=== PATIENT | female | born 1935 | race Asian ===

== ENCOUNTER 2016-07-11 19:52 | Emergency (ER) | payer MEDICARE, OTHER ==
[~2016-07-11] VITALS: Ht 142.2 cm; Wt 45.4 kg
--- NOTE | 2016-07-11 20:00 | NUR ---
PT KARLA JULES. TAKEN TO OF
[2016-07-11 20:16] VITALS: BP 190/82
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
--- NOTE | 2016-07-11 21:04 | NUR ---
Dr. Khan evaluating patient
[2016-07-11] MEDS ORDERED: NACL 0.9% 500 ML IV ONE (21:10)
[2016-07-11 21:42] LABS: BASOPHILS # (AUTO) 0.1 K/uL (0.00-0.22); BASOPHILS % (AUTO) 1.4 % (0.0-2.0); EOSINOPHILS # (AUTO) 0.2 K/uL (0-0.4); EOSINOPHILS % (AUTO) 2.1 % (0.0-4.0); HEMATOCRIT 42.2 % (36-48); HEMOGLOBIN 13.8 g/dL (12.0-16.0); LYMPHOCYTES # (AUTO) 1.8 K/uL (2.5-16.5); LYMPHOCYTES % (AUTO) 16.8 % (20.5-51.1); MEAN CORPUSCULAR HEMOGLOBIN 30 pg (27-31); MEAN CORPUSCULAR HGB CONC 33 g/dL (33-37); MEAN CORPUSCULAR VOLUME 92 fL (80-94); MONOCYTES # (AUTO) 0.7 K/uL (0.8-1.0); MONOCYTES % (AUTO) 6.4 % (1.7-9.3); NEUTROPHILS # (AUTO) 7.8 K/uL (1.8-7.7); NEUTROPHILS % (AUTO) 73.3 % (42.2-75.2); PLATELET COUNT (AUTO) 202 K/uL (140-450); RED BLOOD CELL COUNT(AUTO) 4.57 MIL/uL (4.20-5.40); RED CELL DISTRIBUTION WIDTH 12.1 % (11.6-13.7); WHITE BLOOD COUNT (AUTO) 10.6 K/uL (4.8-10.8)
--- NOTE | 2016-07-11 21:44 | NUR ---
PT MOVED TO ER BED 3
[2016-07-11 21:47] LABS: ANION GAP 12.3 (8-16); CALCIUM 9.2 mg/dL (8.5-10.1); CARBON DIOXIDE 32.1 mmol/L (21-32); CHLORIDE 99 mmol/L (98-107); CREATININE 0.9 mg/dL (0.6-1.3); GLUCOSE 170 mg/dL (74-106); POTASSIUM 3.4 mmol/L (3.5-5.1); SODIUM SERUM 140 mmol/L (136-145); UREA NITROGEN, BLOOD 21 mg/dL (7-18)
[2016-07-11 21:53] LABS: ALANINE AMINOTRANSFERASE 28 U/L (12-78); ALBUMIN 4.2 g/dL (3.4-5.0); ALKALINE PHOSPHATASE 73 U/L (46-116); ASPARTATE AMINOTRANSFERASE 25 U/L (15-37); TOTAL BILIRUBIN 0.5 mg/dL (0.0-1.0); TOTAL PROTEIN, SERUM 8.9 g/dL (6.4-8.2)
--- NOTE | 2016-07-11 22:23 | NUR ---
PT TO CT AT THIS TIME
--- NOTE | 2016-07-11 22:35 | NUR ---
PT RETURN FROM CT
[2016-07-11 22:38] LABS: APPEARANCE,URINE CLEAR (CLEAR); BILIRUBIN,URINE NEGATIVE (NEGATIVE); BLOOD, URINE TRACE-I (NEGATIVE); COLOR,URINE YELLOW (YELLOW); LEUKOCYTE ESTERASE ,URINE NEGATIVE (NEGATIVE); NITRITE, URINE NEGATIVE (NEGATIVE); PROTEIN,URINE NEGATIVE (NEGATIVE); UGLUCOSE 2+ (NEGATIVE); UROBILINOGEN,URINE 0.2 EU/dL (0.2 - 1)
[2016-07-11 22:51] LABS: BACTERIA,URINE None Seen /HPF (None Seen); RBC,URINE 0-5 (RARE) /HPF (0-5); SQUAMOUS EPITHELIAL CELL,UR 0-3 (FEW) /LPF (0-3 (FEW)); WBC,URINE NONE SEEN /HPF (0-5)
[2016-07-11 23:31] VITALS: BP 169/85
--- NOTE | 2016-07-11 23:31 | NUR ---
IV removed, catheter intact and site benign. Applied folded 4x4 gauze and tape to stop bleeding. Patient discharged with v/s stable. Written and verbal after care instructions given and explained. Patient alert, oriented and verbalized understanding of instructions. Ambulatory with steady gait. All questions addressed prior to discharge. ID band removed. Patient advised to follow up with PMD. Rx of MOTRIN AND NORCO given. Patient educated on indication of medication including possible reaction and side effects. Opportunity to ask questions provided and answered.
== END 2016-07-11 23:31 | disposition home or self-care (01) ==
LOC: MED 19:52
DX: S22.42XA Multiple fractures of ribs, left side, initial encounter for closed fracture (principal); E11.9 Type 2 diabetes mellitus without complications; I10 Essential (primary) hypertension; V43.52XA Car driver injured in collision with other type car in traffic accident, initial encounter; Y93.89 Activity, other specified; Y92.488 Other paved roadways as the place of occurrence of the external cause; Y99.8 Other external cause status
CPT/HCPCS: 36415; 71260; 74177; 80053; 81001; 85025; 96360; 96361; 99285; J7030; Q9967; 96372

== ENCOUNTER 2018-09-14 16:43 | Inpatient (IN) | payer OTHER ==
[~2018-09-14] VITALS: Ht 152.4 cm; Wt 59.4 kg
--- NOTE | 2018-09-14 16:43 | NUR ---
Patient KARLA JULES, triaged by RN and transferred to the ED lobby to wait for an available bed.
[2018-09-14 16:50] VITALS: BP 153/60
[2018-09-14] MEDS ORDERED: NIFE90TE3 PO (16:56)
[2018-09-14] MEDS ORDERED: METF1000 PO (16:56)
[2018-09-14] MEDS ORDERED: RIVA3CAP5 PO (16:56)
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
--- NOTE | 2018-09-14 17:03 | NUR ---
Patient ambulated to bed 6 with family. RN evaluating patient at bedside.
[2018-09-14] MEDS ORDERED: cefTRIAXone 1,000 MG in DEXT 5% MINI-BAG PLUS 50 ML IV ONE (17:05)
[2018-09-14] MEDS ORDERED: GLIP5TAB4 PO (17:12)
[2018-09-14] MEDS ORDERED: ESOM40EC PO (17:12)
[2018-09-14] MEDS ORDERED: CALC500T19 PO (17:12)
[2018-09-14] MEDS ORDERED: BACL10TA4 PO (17:12)
[2018-09-14] MEDS ORDERED: ATOR20TA PO (17:12)
[2018-09-14] MEDS ORDERED: ORE25 PO (17:12)
[2018-09-14] MEDS ORDERED: LEVO5TAB32 PO (17:12)
[2018-09-14] MEDS ORDERED: MULT1SGL58 PO (17:12)
[2018-09-14] MEDS ORDERED: cefTRIAXone 1,000 MG VIAL ONE (17:29)
[2018-09-14 17:32] LABS: BASOPHILS % (AUTO) 0.3 % (0.0-2.0); EOSINOPHILS % (AUTO) 0.1 % (0.0-4.0); HEMATOCRIT 35.7 % (36-48); HEMOGLOBIN 12.1 g/dL (12.0-16.0); LYMPHOCYTES # (AUTO) 2.2 K/uL (2.5-16.5); LYMPHOCYTES % (AUTO) 19.1 % (20.5-51.1); MEAN CORPUSCULAR HEMOGLOBIN 31 pg (27-31); MEAN CORPUSCULAR HGB CONC 34 g/dL (33-37); MEAN CORPUSCULAR VOLUME 90.6 fL (80-94); MONOCYTES # (AUTO) 1.1 K/uL (0.8-1.0); MONOCYTES % (AUTO) 9.1 % (1.7-9.3); NEUTROPHILS # (AUTO) 8.3 K/uL (1.8-7.7); NEUTROPHILS % (AUTO) 71.4 % (42.2-75.2); PLATELET COUNT (AUTO) 206 K/uL (140-450); RED BLOOD CELL COUNT(AUTO) 3.94 MIL/uL (4.20-5.40); RED CELL DISTRIBUTION WIDTH 13.2 % (11.6-13.7); WHITE BLOOD COUNT (AUTO) 11.6 K/uL (4.8-10.8)
--- NOTE | 2018-09-14 17:44 | NUR ---
PT TAKEN TO CT VIA BED BY DENTAL BILLING SPECIALIST
[2018-09-14 17:48] LABS: ALBUMIN 3.4 g/dL (3.4-5.0); ASPARTATE AMINOTRANSFERASE 21 U/L (15-37); CARBON DIOXIDE 27.8 mmol/L (21-32); CHLORIDE 88 mmol/L (98-107); CREATININE 1.2 mg/dL (0.6-1.3); GLUCOSE 207 mg/dL (74-106); SODIUM SERUM 130 mmol/L (136-145); TOTAL BILIRUBIN 0.8 mg/dL (0.0-1.0); UREA NITROGEN, BLOOD 15 mg/dL (7-18)
[2018-09-14 17:50] LABS: POTASSIUM 2.8 mmol/L (3.5-5.1)
--- NOTE | 2018-09-14 17:52 | NUR ---
RECEIVED REPORT FROM LAB, SPOKE TO ODALYSLACTIC ACID 4.6, DR CLEANING NOTIFIED.
--- NOTE | 2018-09-14 17:55 | NUR ---
Patient returned from CT scan. RN re-evaluating patient at bedside.
[2018-09-14] MEDS ORDERED: NACL 0.9% 1,500 ML IV ONE (18:25)
[2018-09-14 18:40] LABS: APPEARANCE,URINE CLEAR (CLEAR); BILIRUBIN,URINE NEGATIVE (NEGATIVE); BLOOD, URINE 2+ (NEGATIVE); COLOR,URINE YELLOW (YELLOW); LEUKOCYTE ESTERASE ,URINE NEGATIVE (NEGATIVE); NITRITE, URINE NEGATIVE (NEGATIVE); UGLUCOSE 1+ (NEGATIVE)
[2018-09-14 18:48] LABS: RBC,URINE >20 (MANY) /HPF (0-5); WBC,URINE 0-5 /HPF (0-5)
--- NOTE | 2018-09-14 19:04 | NUR ---
FLU SWAB OBTAINED. CALLED LAB FOR TUBE ROLLER.
[2018-09-14] MEDS ORDERED: POTASSIUM CHLORIDE 10 MEQ TABER PO ONE (19:10)
--- NOTE | 2018-09-14 19:12 | NUR ---
Pt report given to MARK Guerrero. Transfer of care at this time.
--- NOTE | 2018-09-14 19:15 | NUR ---
REPORT RECEIVED FROM MARK BENSON. TRANSFER OF CARE AT THIS TIME. PT IS AWAKE, ALERT RESTING COMFORTABLY IN BED. DAUGHTER AT BEDSIDE. SKIN PINK, WARM, DRY. BREATHING EVEN, UNLABORED. VSS.
--- NOTE | 2018-09-14 19:32 | NUR ---
DR. HERNANDEZ BEDSIDE EVALUATING PT
[2018-09-14] MEDS ORDERED: MORPHINE SULFATE 4 MG/ML SYR IVP ONE (19:45)
[2018-09-14] MEDS ORDERED: NACL 0.9% 500 ML IV ONE (19:45)
--- NOTE | 2018-09-14 20:03 | NUR ---
PT TAKEN TO CT
--- NOTE | 2018-09-14 20:21 | NUR ---
PT RETURNED FROM CT
--- NOTE | 2018-09-14 21:00 | NUR ---
SON AT BEDSIDE. SPOKE WITH GRANDDAUGHTER, RUSTY ON PHONE TO UPDATE ON PT'S STATUS.
[2018-09-14] MEDS ORDERED: HYDROcodone/APAP 7.5/325 MG 1 TAB PO PRN (21:05)
[2018-09-14] MEDS ORDERED: ONDANSETRON 4 MG/2 ML VIAL IVP PRN (21:05)
[2018-09-14] MEDS ORDERED: ACETAMINOPHEN 325 MG TAB PO PRN (21:05)
[2018-09-14] MEDS ORDERED: MEDICATION REC. PHARMACY CONS. 1 EA MISC MC PRN (21:05)
--- NOTE | 2018-09-14 21:23 | NUR ---
PT AMBULATED TO BR W/ FAMILY AT SIDE.
--- NOTE | 2018-09-14 21:30 | NUR ---
SP02: 90% ON 4 LPM FIO2 VIA NC. FIO2 INCREASED TO 6 LPM VIA SIMPLE MASK. SPO2:100%
[2018-09-14 21:32] LABS: PROTHROMBIN TIME 10.1 secs (10.8-13.4)
[2018-09-14 21:35] LABS: BARBITURATE, URINE NEG. ng/ml (NEG <=200); BENZODIAZEPINE, URINE NEG. ng/mL (NEG <=200); CANNABINOID, URINE NEG. ng/mL (NEG <=50); COCAINE, URINE NEG. ng/mL (NEG <=300); OPIATE, URINE NEG. ng/mL (NEG <=2000); PHENCYCLIDINE SCREEN,URINE NEG. ng/mL (NEG <=25)
[2018-09-14 21:44] LABS: FREE T4 (FREE THYROXINE) 1.47 ng/dL (0.76-1.46); MAGNESIUM 1.2 mg/dL (1.8-2.4); PHOSPHORUS 2.7 mg/dL (2.5-4.9); THYROID STIMULATING HORMONE 1.1 uIU/mL (0.34-3.74)
--- NOTE | 2018-09-14 21:47 | NUR ---
Patient will be admitted to care of Dr. Dallas. Admited to Tele. Will go to room 122A. Belongings list completed. Report to MARK Pelaez.
[2018-09-14 22:10] VITALS: BP 156/74
[2018-09-14] MEDS ORDERED: DEXTROSE 50% 50 ML SYR IVP PRN (22:10)
--- NOTE | 2018-09-14 22:10 | NUR ---
RECEIVED PT FROM ER NURSE. PT ABLE TO AMBULATE. PT SON AT BED SIDE. PT ON SIMPLE FACE MASK WITH 5LPM. NO SOB OR ANY RESP DISTRESS NOTED AT THIS TIME. SKIN INTACT, WARM AND DRY. DX PNA, HX DM, HTN. IV SITE LAC 22G, INTACT, PATENT AND ASYMPTOMATIC. ALL SAFETY MEASURE ARE MET. BED IN LOW POSITION, CALL LIGHT WITHIN REACH.
[2018-09-14] MEDS ORDERED: MAG SULF 2000 MG/WATER PREMIX 100 ML IV SCH (22:30)
[2018-09-14] MEDS ORDERED: POTASSIUM CHLORIDE 10 MEQ TABER PO SCH (22:30)
--- NOTE | 2018-09-14 22:57 | NUR ---
GIVEN MAG SULF AND Renetta HORTON. PT TOLERATED WELL. Addendum: 09/15/18 at 0633 by Héctor Hughes RN START NEW IV LINE ON RIGHT FA WITH 22G TO GIVE FLUID AND MAG AT SAME TIME. GOOD BLOOD RETURN NOTED. PT TOLERATED WELL.
[2018-09-14] MEDS ORDERED: SENNA 8.6 MG TAB PO SCH (23:00)
[2018-09-14] MEDS: NACL 0.9% 1,000 ML IV SCH (23:00)
--- NOTE | 2018-09-14 23:33 | NUR ---
GIVEN SENNA DR. ORDERED. PT TOLERATED WELL.
[2018-09-15] VITALS: BP 128/56
[2018-09-15] MEDS: AZITHROMYCIN 500 MG in DEXTROSE 5% 250 ML IV SCH ×2 (00:32→23:58)
--- NOTE | 2018-09-15 00:32 | NUR ---
GIVEN ZITHROMAX DR. ORDERED. PT TOLERATED WELL. BED IN LOW POSITION. CALL LIGHT WITHIN REACH.
[2018-09-15] MEDS ORDERED: AZITHROMYCIN 500 MG INJ VIAL IV ONE (00:37)
--- NOTE | 2018-09-15 03:30 | NUR ---
PT SLEEPING IN BED COMFORTABLY. NO SOB NOTED. BREATHING EVEN AND UNLABORED. WILL CONTINUE TO MONITOR.
[2018-09-15 04:00] VITALS: BP 129/65
[2018-09-15] MEDS: BLOOD GLUCOSE MONITORING 1 DEV DEV FS SCH ×4 (05:45→20:41)
[2018-09-15] MEDS: INSULIN LISPRO SLIDING SCALE 100 UNITS/ML VIAL SUBQ PRN ×4 (05:48→20:48)
--- NOTE | 2018-09-15 05:48 | NUR ---
BS CHECKED, 153, GIVEN 2 UNITS OF INSULIN ORDERED. PT TOLERATED WELL.
--- NOTE | 2018-09-15 07:35 | NUR ---
RECEIVED PT FROM GUIDE TRAVEL NURSE, PT IS AWAKE AND ULTRASOUND OF THE ABDOMEN IS BEING DONE TO PT NOW, HAS IV LINES ON THE LEFT AC G.22 ON SALINE LOCK AND RT FA G. 22 WITH NS INFUSING AT A RATE OF 80ML.HR, INTACT. PT HAS AN O2 IN PLACE AT 3L VIA NC. NO SIGN OF DISTRESS NOTED AN WILL MONITOR PT.
[2018-09-15 08:00] VITALS: BP 118/49
--- NOTE | 2018-09-15 08:05 | NUR ---
PT IS AWAKE AND VITAL SIGNS CHECKED, BP IS 118/49, PULSE IS 89, TEMP. IS 98.2, O2 SATURATION IS 92% AT 3L O2 NC. AND RESPIRATION IS 20/MIN, EVEN AND NO SIGN OF DISTRESS NOTED AND WILL MONITOR PT.
[2018-09-15] MEDS: glipiZIDE 5 MG TAB PO SCH ×2 (08:45→20:44)
[2018-09-15] MEDS: ATORVASTATIN 20 MG TAB PO SCH (08:45)
[2018-09-15] MEDS: CALCIUM CARBONATE 500 MG TAB PO SCH (08:45)
[2018-09-15] MEDS: MULTIVITAMIN/MINERALS 1 TAB PO SCH (08:46)
[2018-09-15] MEDS: BACLOFEN 10 MG TAB PO SCH (08:46)
[2018-09-15] MEDS: DOCUSATE SODIUM 100 MG GELCAP PO SCH ×2 (08:46→20:44)
[2018-09-15] MEDS: LACTOBACILLUS RHAMNOSUS GG 1 EACH CAP PO SCH (08:46)
[2018-09-15] MEDS: PANTOPRAZOLE 40 MG TABEC PO SCH (08:46)
[2018-09-15] MEDS: RIVASTIGMINE 1.5 MG CAP PO SCH (08:47)
[2018-09-15] MEDS: NIFEdipine 90 MG TABER PO SCH ×2 (09:08→20:44)
--- NOTE | 2018-09-15 09:30 | NUR ---
PLACED PT ON 9 L OXYMIZER SPO2 92
--- NOTE | 2018-09-15 09:30 | NUR ---
PATIENT HAS BEEN SCREENED AND CATEGORIZED HIGH NUTRITION RISK. PATIENT WILL BE SEEN WITHIN 1-2 DAYS OF ADMISSION. 09/15/18-09/16/[address]
--- NOTE | 2018-09-15 11:20 | NUR ---
PT'S O2 SATURATION WAS CHECKED NOW AND IS 94%. ON 3L OXYMIZER AND WILL CONTINUE TO MONITOR PT.
[2018-09-15] MEDS: ALBUTEROL SULFATE/IPRATROPIU 3 ML SOL IH PRN ×2 (11:21→17:48)
--- NOTE | 2018-09-15 11:55 | NUR ---
PT WAS GIVEN 4 UNITS INSULIN FOR A BLOOD SUGAR OF 108 ON THE ABDOMEN. WILL MONITOR PT.
[2018-09-15] MEDS: NACL 0.9% 1,000 ML IV SCH ×3 (11:57→23:58)
[2018-09-15 12:00] VITALS: BP 158/71
[2018-09-15] MEDS: ALBUTEROL SULFATE/IPRATROPIU 3 ML SOL IH SCH ×2 (13:27→19:40)
[2018-09-15] MEDS ORDERED: FUROSEMIDE 20 MG/2 ML VIAL IVP SCH (14:00)
--- NOTE | 2018-09-15 14:13 | NUR ---
LASIX IV PUSH WAS GIVEN TO PT NOW, BP IS 152/67, PULSE IS 113, 02 SATURATION 97%. NO SIGN OF DISTRESS NOTED AND WILL MONITOR PT.
[2018-09-15 16:00] VITALS: BP 154/70
--- NOTE | 2018-09-15 16:42 | NUR ---
PT WAS GIVEN 4 UNITS INSULIN ON THE ABDOMEN FOR A BLOOD GLUCOSE OF 231. WILL MONITOR PT.
--- NOTE | 2018-09-15 17:30 | NUR ---
09/15/18 RD INITIAL ASSESSMENT COMPLETED PLEASE REFER TO NUTRITION ASSESSMENT UNDER CARE ACTIVITY FOR ESTIMATED NUTRITIONAL NEEDS. RD RECOMMENDATIONS: 1. CONTINUE 60 GM CCHO DIET TOLERATED. 2. ENCOURAGE INCREASED PO INTAKE. 3. IF PT HAS POOR PO INTAKE, CONSIDER GLUCERNA SHAKE BID. 4. RD WILL F/U 3-5 DAYS; MODERATE RISK. EFRAÍN CHAVIRA, RD
--- NOTE | 2018-09-15 19:00 | NUR ---
ENDORSED PT TO CLEAN OUT DRILLER NURSE FOR CONTINUITY OF CARE.
--- NOTE | 2018-09-15 19:00 | NUR ---
RECEIVED REPORT FROM AM SHIFT NURSE FOR CONTINUITY OF CARE. PATIENT IS AWAKE, ALERT, LYING DOWN IN BED WITH SON AT BEDSIDE. PATIENT IS ON 3L OXIMIZER. HAS RIGHT FOREARM 22 GA NORMAL SALINE RUNNING AT 80 ML/HR. PATIENT DENIES ANY PAIN AT THIS TIME. WILL MONITOR PATIENT THROUGHOUT SHIFT.
[2018-09-15 20:00] VITALS: BP 145/69
--- NOTE | 2018-09-15 20:15 | NUR ---
1954 INCENTIVE SPIROMETER INSTRUCTED TO PATIENT AND FAMILY MEMBERS INTERPRETED TO PATIENT. PATIENT HAD A POOR EFFORT AT 500CC X 10 BREATHS. FAMILY WILL HELP HER TO CONTINUE USING IT
--- NOTE | 2018-09-15 20:18 | NUR ---
DR. ORTEGA CAME AND CHECKED ON PT. DISCUSSED PRESENT CONDITION TO PT AND FAMILY.
--- NOTE | 2018-09-15 20:44 | NUR ---
BLOOD GLUCOSE CHECK - 252. ADMINISTERED 6 UNITS OF INSULIN. ALSO ADMINISTERED PO MEDICATIONS AND HEPARIN SUBQ ORDERED. PATIENT TOLERATED THEM WELL. WILL CONTINUE TO MONITOR PATIENT.
--- NOTE | 2018-09-15 20:48 | NUR ---
BLOOD SUGAR WAS CHECKED RESULT 252. INSULIN COVERAGE SUB Q GIVEN ORDERED. PROVIDED WITH HS SNACK. WILL CONTINUE TO MONITOR. Addendum: 09/15/18 at 2320 by Darcie De Jesus RN CANCEL. DUPLICATE NOTES.
--- NOTE | 2018-09-15 22:50 | NUR ---
PT USED THE COMMODE .VOIDED. WITH SOB AFTER. SO ASSISTED PT TO REPOSITIONED WELL WITH HOB ELEVATED. AND PROPER BREATHING TECHNIQUE. USED INCENTIVE SPIROMETER. O2 SAT 94%.
--- NOTE | 2018-09-15 23:30 | NUR ---
MADE ROUNDS. PATIENT LYING DOWN IN BED, ASLEEP, WITH NO SIGNS OF DISTRESS. WILL CONTINUE TO MONITOR PATIENT.
--- NOTE | 2018-09-15 23:58 | NUR ---
ASSISTED PATIENT TO BEDPAN. PATIENT DID NOT SHOW SIGNS OF SHORTNESS OF BREATH. VITAL SIGNS TAKEN AND CHARTED. HUNG IV ANTIBIOTICS. PATIENT DENIES ANY PAIN AT THIS TIME. WILL CONTINUE TO MONITOR PATIENT.
[2018-09-16] VITALS: BP 154/69
--- NOTE | 2018-09-16 02:00 | NUR ---
ASSISTED PATIENT TO BEDPAN, BOWEL MOVEMENT AND URINE NOTED. PATIENT EXHIBITING SIGNS OF SHORTNESS OF BREATH. ASSISTED WITH DEEP BREATHING TECHNIQUES, O2 SAT WENT UP TO 92%. WILL CONTINUE TO MONITOR PATIENT.
--- NOTE | 2018-09-16 03:10 | NUR ---
PATIENT EXHIBITING SHORTNESS OF BREATH, CALLED RT AND ASKED FOR BREATHING TREATMENT.
[2018-09-16] MEDS: ALBUTEROL SULFATE/IPRATROPIU 3 ML SOL IH PRN (03:18)
--- NOTE | 2018-09-16 03:20 | NUR ---
RT AT BEDSIDE, ADMINISTERING BREATHING TREATMENT. WILL CONTINUE TO MONITOR PATIENT.
[2018-09-16 03:52] VITALS: BP 132/58
--- NOTE | 2018-09-16 03:53 | NUR ---
PT AWAKE,ALERT AND ORIENTED X4. HAVING SOME WHEEZING AND O2 SAT ONLY 90% WITH 6L O2 OXIMIZER,RESPIRATION 22/MIN EVEN AFTER THE BREATHING TREATMENTS THAT WAS JUST GIVEN BY RT. TALKED TO DR HUTSON , RESIDENT ON DUTY AND MADE AWARE. ORDERED SOLU- MEDROL 125MG IVP WHICH WAS GIVEN. WILL CONTINUE TO MONITOR.
[2018-09-16] MEDS ORDERED: methylPREDNISolone SS 125 MG/2 ML VIAL IVP SCH (04:00)
--- NOTE | 2018-09-16 04:22 | NUR ---
MADE ROUNDS. PT ASLEEP. O2 SAT 92% AT THIS TIME. NO RESPIRATORY DISTRESS NOTED. WILL STILL CONTINUE TO MONITOR.
--- NOTE | 2018-09-16 05:33 | NUR ---
ADMINISTERED 2ML OF LASIX MEDICATION IV PUSH, ORDERED. DR. BRO ORDERED TO STOP THE IV INFUSION. STOPPED IV, NOW ON SALINE LOCK. PATIENT O2 SATURATION IS AT 91%. WILL CONTINUE TO MONITOR PATIENT.
[2018-09-16] MEDS: BLOOD GLUCOSE MONITORING 1 DEV DEV FS SCH ×4 (05:40→21:39)
[2018-09-16] MEDS: INSULIN LISPRO SLIDING SCALE 100 UNITS/ML VIAL SUBQ PRN ×3 (05:57→21:42)
[2018-09-16] MEDS ORDERED: FUROSEMIDE 20 MG/2 ML VIAL IVP SCH ×2 (06:00→09:00)
--- NOTE | 2018-09-16 06:13 | NUR ---
O2 SAT AT THIS TIME 95% WITH O2 12L/MIN OXIMIZER RT CHANGED FROM 7L/MIN. . WAITING FOR ABG RESULT.
--- NOTE | 2018-09-16 06:45 | NUR ---
CHEST XRAY DONE AT BEDSIDE. WILL ENDORSE TO AM SHIFT NURSE TO AWAIT FOR RESULT.
[2018-09-16] MEDS: ALBUTEROL SULFATE/IPRATROPIU 3 ML SOL IH SCH ×3 (06:56→19:20)
--- NOTE | 2018-09-16 07:04 | NUR ---
ENDORSED PATIENT TO AM SHIFT NURSE FOR CONTINUITY OF CARE. PATIENT IS ON 12L OXIMIZER NC, 96% O2 SATURATION. PATIENT IS IN STABLE CONDITION. BED IN LOW POSITION, SIDE RAILS ARE UP, AND CALL LIGHT WITHIN REACH.
--- NOTE | 2018-09-16 07:05 | NUR ---
RECEIVED PT FROM STATION TENDER NURSE, PT IS AWAKE AND LYING ON THE BED WITH SIDE RAILS UP AND CALL LIGHT WITHIN REACH, PT IS ON 10L O2 VIA OXYMIZER, HAS AN IV LINE ON THE RT FA G. 22 ON SALINE LOCK, RESPIRATION IS EVEN,DENIES PAIN, NO SIGN OF DISTRESS NOTED. WILL MONITOR PT.
[2018-09-16 07:12] LABS: BASOPHILS % (AUTO) 0.1 % (0.0-2.0); EOSINOPHILS % (AUTO) 0.1 % (0.0-4.0); HEMATOCRIT 32.5 % (36-48); HEMOGLOBIN 11.1 g/dL (12.0-16.0); LYMPHOCYTES # (AUTO) 0.7 K/uL (2.5-16.5); MEAN CORPUSCULAR HEMOGLOBIN 31 pg (27-31); MEAN CORPUSCULAR HGB CONC 34 g/dL (33-37); MEAN CORPUSCULAR VOLUME 91.1 fL (80-94); MONOCYTES # (AUTO) 0.3 K/uL (0.8-1.0); MONOCYTES % (AUTO) 2.7 % (1.7-9.3); NEUTROPHILS # (AUTO) 8.7 K/uL (1.8-7.7); PLATELET COUNT (AUTO) 191 K/uL (140-450); RED BLOOD CELL COUNT(AUTO) 3.57 MIL/uL (4.20-5.40); RED CELL DISTRIBUTION WIDTH 12.8 % (11.6-13.7); WHITE BLOOD COUNT (AUTO) 9.7 K/uL (4.8-10.8)
[2018-09-16 07:16] LABS: ANION GAP 13.3 (8-16); CARBON DIOXIDE 28.6 mmol/L (21-32); CHLORIDE 98 mmol/L (98-107); CREATININE 0.8 mg/dL (0.6-1.3); GLUCOSE 178 mg/dL (74-106); SODIUM SERUM 137 mmol/L (136-145); UREA NITROGEN, BLOOD 9 mg/dL (7-18)
[2018-09-16 07:24] LABS: CHOL/HDL RATIO 1.6 (1-4.5); MAGNESIUM 1.4 mg/dL (1.8-2.4)
[2018-09-16 07:39] LABS: POTASSIUM 2.9 mmol/L (3.5-5.1)
[2018-09-16 08:00] VITALS: BP 141/61
[2018-09-16 08:09] LABS: LYMPHOCYTES % (AUTO) 6.9 % (20.5-51.1); NEUTROPHILS % (AUTO) 90.2 % (42.2-75.2)
[2018-09-16] MEDS: ATORVASTATIN 20 MG TAB PO SCH (09:24)
[2018-09-16] MEDS: DOCUSATE SODIUM 100 MG GELCAP PO SCH ×2 (09:24→21:40)
[2018-09-16] MEDS: MULTIVITAMIN/MINERALS 1 TAB PO SCH (09:24)
[2018-09-16] MEDS: glipiZIDE 5 MG TAB PO SCH ×2 (09:24→21:40)
[2018-09-16] MEDS: LACTOBACILLUS RHAMNOSUS GG 1 EACH CAP PO SCH (09:25)
[2018-09-16] MEDS: CALCIUM CARBONATE 500 MG TAB PO SCH (09:25)
[2018-09-16] MEDS: PANTOPRAZOLE 40 MG TABEC PO SCH (09:25)
[2018-09-16] MEDS: BACLOFEN 10 MG TAB PO SCH (09:25)
[2018-09-16] MEDS: RIVASTIGMINE 1.5 MG CAP PO SCH (09:27)
[2018-09-16] MEDS: NIFEdipine 90 MG TABER PO SCH ×2 (09:30→21:40)
[2018-09-16] MEDS ORDERED: MAG SULF 2000 MG/WATER PREMIX 50 ML IV SCH (10:00)
[2018-09-16] MEDS ORDERED: POTASSIUM CHLORIDE 40 MEQ, LIDOCAINE MPF 1% - 5 mL VIAL 25 MG in NACL 0.9% 250 ML IV SCH (10:00)
--- NOTE | 2018-09-16 11:02 | NUR ---
INFORMED PT OF THE MG LEVEL OF 1.4 AND POTASSIUM LEVEL OF 2.9, VIA INSPECTOR SEMICONDUCTOR WAFER DEMI #[id number] AND INFORMED PT THAT MG AND K SUPPLEMENTS WILL BE GIVEN VIA IV AND PT VERBALIZED UNDERSTANDING.
--- NOTE | 2018-09-16 11:12 | NUR ---
MAGNESIUM SULFATE RIDER SUPPLEMENT VIA WAS GIVEN TO PT FOR THE MG LEVEL OF 1.4. WILL MONITOR PT.
--- NOTE | 2018-09-16 11:40 | NUR ---
BLOOD GLUCOSE CHECK DONE TO PT AND RESULT IS 417, INFORMED DR. CONWAY AND SAID THAT HE WILL PUT AN ORDER TO GIVE 4 UNITS INSULIN TO PT FOR A ONE TIME DOSE NOW. ACKNOWLEDGED AND WILL MONITOR PT.
--- NOTE | 2018-09-16 11:56 | NUR ---
PT IS AWAKE AND FAMILY ON THE BEDSIDE, 4 UNITS INSULIN HUMALOG WAS GIVEN SUB VIA ABDOMEN AND PT TOLERATED IT. WILL MONITOR PT.
[2018-09-16 12:00] VITALS: BP 126/60
[2018-09-16] MEDS ORDERED: INSULIN LISPRO 100 UNITS/ML VIAL SUBQ SCH (12:00)
--- NOTE | 2018-09-16 13:41 | NUR ---
POTASSIUM RIDER IV WAS STARTED TO PT NOW AT A RATE OF 68/MR. WILL MONITOR PT.
[2018-09-16 16:00] VITALS: BP 135/69
--- NOTE | 2018-09-16 16:32 | NUR ---
BLOOD GLUCOSE WAS CHECKED AND RESULT IS 334, VITAL SIGNS TAKEN AND BP IS 135/69, PULSE IS 104, O2 SATURATION IS 94%TEMPERATURE IS 98.7, RESPIRATION IS EVEN AT 18/MIN, NO SIGN OF DISTRESS NOTED, GRANDDAUGHTER ON THE BEDSIDE. WILL MONITOR PT.
--- NOTE | 2018-09-16 17:28 | NUR ---
PT WAS GIVEN INSULIN SUBQ IN THE ABDOMEN NOW.
--- NOTE | 2018-09-16 19:20 | NUR ---
RECEIVED PATIENT FROM AM SHIFT NURSE FOR CONTINUITY OF CARE. PATIENT IS LYING DOWN IN BED AWAKE, WITH FAMILY MEMBERS AT BEDSIDE. PATIENT DENIES ANY PAIN OR SHORTNESS OF BREATH AT THIS TIME. WILL MONITOR PATIENT THROUGHOUT SHIFT.
--- NOTE | 2018-09-16 19:20 | NUR ---
ENDORSED PT TO SEWING MACHINE MAINTENANCE MECHANIC NURSE FOR CONTINUITY OF CARE.
[2018-09-16 20:00] VITALS: BP 139/64
--- NOTE | 2018-09-16 21:40 | NUR ---
ADMINISTERED PO AND SUBQ MEDICATIONS ORDERED. PATIENT TOLERATED THEM WELL. PATIENT DENIES ANY DISCOMFORT AT THIS TIME. WILL CONTINUE TO MONITOR PATIENT.
--- NOTE | 2018-09-16 22:35 | NUR ---
USED MARKET DEVELOPMENT SPECIALIST PHONE - MARKET DEVELOPMENT SPECIALIST NUMBER - [phone]. PATIENT TRYING TO VOICE OUT INCREASE SHORTNESS OF BREATH UPON LIGHT ACTIVITY, SUCH USING BEDPAN. EXPLAINED THAT OXIMIZER NEEDS TO ALWAYS BE ON HER FOR IMPROVED BREATHING. PATIENT VERBALIZED UNDERSTANDING.
[2018-09-16] MEDS ORDERED: FUROSEMIDE 40 MG/4 ML VIAL IVP SCH (23:00)
--- NOTE | 2018-09-16 23:29 | NUR ---
ADMINISTERED LASIX 40 MG IV PUSH ORDERED. PATIENT TOLERATED IT WELL. WILL CONTINUE TO MONITOR PATIENT.
[2018-09-17] MEDS: ALBUTEROL SULFATE/IPRATROPIU 3 ML SOL IH PRN ×2 (00:20→23:05)
--- NOTE | 2018-09-17 00:20 | NUR ---
USED HOSPITAL PLATE AND FRAME FILTER OPERATOR PHONE - PLATE AND FRAME FILTER OPERATOR NUMBER [id number]. PATIENT HAS INCREASED SHORTNESS OF BREATH, AND ANXIETY. EXPLAINED TO PATIENT THE NEED AND BENEFIT FOR BIPAP USE, AND FOR INSERTING URINARY SMITH CATHETER. PATIENT VERBALIZED UNDERSTANDING.
--- NOTE | 2018-09-17 00:40 | NUR ---
PATIENT WAS PUT ON BIPAP, ORDERED, FOR PROLONGED SHORTNESS OF BREATH, AND WHEEZING. INSERTED SMITH CATHETER ORDERED. PATIENT TOLERATED IT WELL. WILL CONTINUE TO MONITOR PATIENT.
[2018-09-17 00:58] VITALS: BP 154/71
--- NOTE | 2018-09-17 00:58 | NUR ---
0020 PATIENT BECAME SHORT OF BREATH AND HHNTX GIVEN. PATIENT PLACED ON BIPAP IPAP 12 EPAP 6 RR 14 100% FIO2.
[2018-09-17] MEDS: AZITHROMYCIN 500 MG in DEXTROSE 5% 250 ML IV SCH (01:03)
[2018-09-17] MEDS ORDERED: methylPREDNISolone SS 125 MG/2 ML VIAL IVP SCH (01:30)
[2018-09-17] MEDS ORDERED: FUROSEMIDE 40 MG/4 ML VIAL IVP SCH (01:30)
[2018-09-17] MEDS ORDERED: FUROSEMIDE 40 MG/4 ML VIAL IVP ONE (01:30)
--- NOTE | 2018-09-17 02:10 | NUR ---
ADMINISTERED SOLU-MEDROL 80 MG IV PUSH ORDERED. PATIENT TOLERATED IT WELL. WILL CONTINUE TO MONITOR PATIENT.
--- NOTE | 2018-09-17 02:35 | NUR ---
PATIENT LYING DOWN IN BED, AWAKE. BREATHING AND CONDITION IS BETTER AND PATIENT APPEARS TO BE MORE COMFORTABLE. WILL CONTINUE TO MONITOR PATIENT.
[2018-09-17] MEDS ORDERED: LORazepam 2 MG/ML VIAL IVP ONE (03:05)
--- NOTE | 2018-09-17 03:10 | NUR ---
PATIENT INTERMITTENTLY ADJUSTS BIPAP MASK, APPEARS TO BE ANXIOUS. DR. BRO MADE AWARE WITH ORDER. ATIVAN 0.5 MG IV PUSH ADMINISTERED. WILL CONTINUE TO MONITOR PATIENT.
--- NOTE | 2018-09-17 03:18 | NUR ---
0300 lowered fio2 to 60%. pts sats 100%. pt is anxious. keeps touching her mask. rn aware
[2018-09-17 03:57] VITALS: BP 120/58
--- NOTE | 2018-09-17 04:06 | NUR ---
patient wanted off bipap. patient placed on 10 l oxymizer, will continue to monitor patient
--- NOTE | 2018-09-17 04:06 | NUR ---
FOUND BIPAP MACHINE MASK OFF OF PATIENT. TRIED TO REORIENT AND RE-INSTRUCT PATIENT TO NOT TAKEOFF MASK. PATIENT GREW MORE ANXIOUS. WEANED OFF BIPAP AND STARTED ON 10L OXIMIZER AGAIN.
--- NOTE | 2018-09-17 04:15 | NUR ---
PATIENT GROWING MORE ANXIOUS. TRYING TO PULL OUT CALL LIGHT CORD, OXYGEN PROBE CORD. ATTEMPTED TO REDIRECT AND REORIENT, WITH NO AVAIL. WILL TRY TO CALL SON TO REPORT CONDITION OF PATIENT.
--- NOTE | 2018-09-17 04:30 | NUR ---
CALLED AND LEFT A VOICEMAIL TO SONDRU, TO REPORT CURRENT ANXIOUS AND CONFUSED CONDITION OF PATIENT.
--- NOTE | 2018-09-17 05:00 | NUR ---
PATIENT PULLED OUT URINARY SMITH CATHETER. CONTINUOUS TO BE ANXIOUS AND MORE CONFUSED. PATIENT TRYING TO GET OUT OF BED, AND PULLING OUT OXIMIZER, AND O2 PROBE.
--- NOTE | 2018-09-17 05:05 | NUR ---
MD NOTIFIED AND AWARE OF CURRENT PATIENT'S CONDITION. NO NEW ORDERS. WILL CONTINUE TO MONITOR PATIENT.
[2018-09-17 05:42] LABS: CARBON DIOXIDE 29.8 mmol/L (21-32); CHLORIDE 96 mmol/L (98-107); CREATININE 1.1 mg/dL (0.6-1.3); GLUCOSE 234 mg/dL (74-106); SODIUM SERUM 137 mmol/L (136-145); UREA NITROGEN, BLOOD 15 mg/dL (7-18)
[2018-09-17 05:43] LABS: MAGNESIUM 1.6 mg/dL (1.8-2.4); PHOSPHORUS 3.2 mg/dL (2.5-4.9)
[2018-09-17] MEDS: BLOOD GLUCOSE MONITORING 1 DEV DEV FS SCH ×4 (06:09→20:19)
[2018-09-17] MEDS: INSULIN LISPRO SLIDING SCALE 100 UNITS/ML VIAL SUBQ PRN ×4 (06:11→20:18)
--- NOTE | 2018-09-17 06:11 | NUR ---
GLUCOSE CHECK 227, 4 UNITS ADMINISTERED USING SLIDING SCALE.
--- NOTE | 2018-09-17 06:16 | NUR ---
PT STARTED TO GET SOME SLEEP WHEN JUST TRANSFERRED TO ROOM 110A DUE TO CONFUSION ,TRYING TO GET OUT OF BED AND PULLING TUBINGS. O2 SAT AT THIS TIME 96% ON O2 10L BY OXYMIZER.
[2018-09-17 06:19] LABS: POTASSIUM 2.8 mmol/L (3.5-5.1)
--- NOTE | 2018-09-17 06:20 | NUR ---
LAB CALLED FOR CRITICal result k level 2.[address] BRO MADE AWARE . WILL SEE PT.
--- NOTE | 2018-09-17 06:40 | NUR ---
HUNG 1ST BAG OF MAGNESIUM SULFATE IV FLUID ORDERED. INITIATED FALL RISK PRECAUTION PROTOCOL, DUE TO INCREASED CONFUSION THROUGHOUT THE NIGHT. PATIENT IS CURRENTLY LYING DOWN ASLEEP, WITH NO SIGNS OF DISTRESS, ON 10L O2 VIA OXIMIZER SATURATING AT 98%. WILL CONTINUE TO MONITOR PATIENT.
[2018-09-17 06:49] LABS: HEMATOCRIT 30.1 % (36-48); HEMOGLOBIN 10.2 g/dL (12.0-16.0); LYMPHOCYTES # (AUTO) 0.6 K/uL (2.5-16.5); LYMPHOCYTES % (AUTO) 4.5 % (20.5-51.1); MEAN CORPUSCULAR HEMOGLOBIN 31 pg (27-31); MEAN CORPUSCULAR HGB CONC 34 g/dL (33-37); MEAN CORPUSCULAR VOLUME 90.7 fL (80-94); MONOCYTES # (AUTO) 0.3 K/uL (0.8-1.0); MONOCYTES % (AUTO) 2.6 % (1.7-9.3); NEUTROPHILS # (AUTO) 11.6 K/uL (1.8-7.7); NEUTROPHILS % (AUTO) 92.9 % (42.2-75.2); PLATELET COUNT (AUTO) 205 K/uL (140-450); RED BLOOD CELL COUNT(AUTO) 3.32 MIL/uL (4.20-5.40); RED CELL DISTRIBUTION WIDTH 13.2 % (11.6-13.7); WHITE BLOOD COUNT (AUTO) 12.5 K/uL (4.8-10.8)
[2018-09-17] MEDS: ALBUTEROL SULFATE/IPRATROPIU 3 ML SOL IH SCH ×3 (06:52→19:13)
[2018-09-17] MEDS ORDERED: MAG SULF 2000 MG/WATER PREMIX 100 ML IV ONE (07:00)
[2018-09-17] MEDS ORDERED: POTASSIUM CHLORIDE 10 MEQ TABER PO SCH (07:00)
--- NOTE | 2018-09-17 07:00 | NUR ---
ENDORSED PATIENT TO AM SHIFT NURSE FOR CONTINUITY OF CARE. PATIENT LYING DOWN, ASLEEP, WITH NO SIGNS OF DISTRESS, WITH CONTINUOUS O2 SAT OF 98% ON 10L OXIMIZER NC.
--- NOTE | 2018-09-17 07:05 | NUR ---
PLACED 7 L OXYMIZER SPO2 92 Addendum: 09/17/18 at 0707 by Latricia Shields RT POX IN PLACE , PT HAS O2 EXTENSION
--- NOTE | 2018-09-17 07:10 | NUR ---
RECEIVED BEDSIDE REPORT FROM WASHER CUTTER NURSE. PT IS ASLEEP WITH THE OXIMIZER AT 10L/MIN. NO S/S OF ANY ACUTE DISTRESS NOTED, NO S/S OF SOB. SKIN IS INTACT. IV IS IN THE RFA, 22 G, SALINE LOCKED. CCHO 60 DIET. PT IS SENEGALESE SPEAKING ONLY. THERE IS A COMMODE AT BEDSIDE, BUT WAS TOLD BY WASHER CUTTER NURSE TO ONLY USE BEDPAN BECAUSE PT GETS VERY SHORT OF BREATH WHEN GETTING UP ONTO THE COMMODE. CALL LIGHT IS WITHIN REACH, WILL CONTINUE TO MONITOR.
[2018-09-17 08:00] VITALS: BP 127/59
[2018-09-17] MEDS ORDERED: POTASSIUM CHLORIDE 40 MEQ, LIDOCAINE MPF 1% - 5 mL VIAL 25 MG in NACL 0.9% 250 ML IV ONE (08:00)
[2018-09-17] MEDS: LACTOBACILLUS RHAMNOSUS GG 1 EACH CAP PO SCH (08:25)
[2018-09-17] MEDS: MULTIVITAMIN/MINERALS 1 TAB PO SCH (08:26)
[2018-09-17] MEDS: NIFEdipine 90 MG TABER PO SCH ×2 (08:26→20:10)
[2018-09-17] MEDS: glipiZIDE 5 MG TAB PO SCH ×2 (08:26→20:10)
[2018-09-17] MEDS: ATORVASTATIN 20 MG TAB PO SCH (08:26)
[2018-09-17] MEDS: FUROSEMIDE 40 MG/4 ML VIAL IVP SCH ×2 (08:26→17:17)
[2018-09-17] MEDS: BACLOFEN 10 MG TAB PO SCH (08:26)
[2018-09-17] MEDS: DOCUSATE SODIUM 100 MG GELCAP PO SCH ×2 (08:26→20:09)
[2018-09-17] MEDS: POTASSIUM CHLORIDE 10 MEQ TABER PO SCH (08:27)
[2018-09-17] MEDS: CALCIUM CARBONATE 500 MG TAB PO SCH (08:27)
[2018-09-17] MEDS: PANTOPRAZOLE 40 MG TABEC PO SCH (08:27)
--- NOTE | 2018-09-17 08:56 | NUR ---
AM MEDS ADMINISTERED, PT TOLERATED WELL. PT'S DAUGHTER IS AT BEDSIDE. SECOND BAG OF IV MAG IS INFUSING AT THIS TIME.
[2018-09-17] MEDS ORDERED: DEXTROSE 50% 50 ML SYR IVP PRN (09:00)
[2018-09-17] MEDS ORDERED: FUROSEMIDE 20 MG TAB PO SCH (09:00)
--- NOTE | 2018-09-17 09:19 | NUR ---
CONSENT OBTAINED FROM PT'S DAUGHTER FOR THE CHEST CT SCAN WITH CONTRAST.
--- NOTE | 2018-09-17 10:34 | NUR ---
NEW IV INSERTED IN R FA, 20 G, FOR CONTRAST ADMINISTRATION, FOR THE CHEST CT SCAN. Addendum: 09/17/18 at 1036 by Christen Lam RN CORRECTION: LEFT FA
--- NOTE | 2018-09-17 11:00 | NUR ---
PT OFF THE UNIT FOR CHEST CT SCAN WITH CONTRAST.
--- NOTE | 2018-09-17 11:35 | NUR ---
PT IS BACK FROM CHEST CT SCAN; NO S/S OF REACTION TO IV CONTRAST REPORTED.
[2018-09-17 12:00] VITALS: BP 139/64
--- NOTE | 2018-09-17 12:14 | NUR ---
PT HAVING AN ECHOCARDIOGRAM AT THIS TIME AT BEDSIDE. DAUGHTER IS STILL PRESENT AT BEDSIDE.
--- NOTE | 2018-09-17 12:58 | NUR ---
DECREASE FIO2 FROM 10 OXYMIZER TO 6 L SPO2 100 FAMILY PRESENT
[2018-09-17] MEDS: methylPREDNISolone SS 125 MG/2 ML VIAL IVP SCH ×2 (13:47→20:08)
[2018-09-17] MEDS: PIPER/TAZO 3.375GM/D5W PREMIX 50 ML IV SCH ×2 (13:47→20:08)
--- NOTE | 2018-09-17 14:52 | NUR ---
PT OFF THE UNIT FOR HEAD CT SCAN.
[2018-09-17 16:00] VITALS: BP 145/67
--- NOTE | 2018-09-17 17:27 | NUR ---
DR CONWAY PERFORMED NEURO CHECKS ON PT, PT DOES NOT APPEAR TO HAVE S/S OF A STROKE, DESPITE THE HEAD CT SCAN FINDINGS. PT IS ABLE TO FOLLOW DIRECTIONS WELL (TOUCHING HER NOSE AND THEN 'S FINGER), AND IS ABLE TO COMMUNICATE WELL WITH HER GRANDSON OVER THE PHONE. DR CONWAY WILL ASK THE RADIOLOGIST TO RE-READ THE HEAD CT SCAN.
--- NOTE | 2018-09-17 19:30 | NUR ---
PT ENDORSED TO SUPERVISOR PACKING ROOM IN STABLE CONDITION.
--- NOTE | 2018-09-17 19:31 | NUR ---
RECEIVED PT SITTING ON BED, CENTRAL AFRICAN SPEAKING ONLY, FAMILY MEMBERS AT BEDSIDE FOR TRANSLATION, AAOX3, FORGETFUL SOMETIMES, VITAL SIGNS STABLE, ST ON TELE, WHEEZING ON AUSCULTATION, NO SOB NOTED, SAT-95% ON 10L OXIMIZER, RT FOR BREATHING TX, PLAN OF CARE DISCUSSED WITH FAMILY MEMBERS AT BEDSIDE, SAFETY MEASURES IN PLACE, CALL LIGHT WITHIN REACH.
--- NOTE | 2018-09-17 19:38 | NUR ---
* ST NOTE * Pt seen at bedside w/family and nsg present. Pt consenting to tx w/family present, w/family also translating for clinician. Pt alert, cooperative and engaged throughout session, reporting no c/o pain at this time. Bedside dysphagia and oral mechanism exams completed. See evaluation report for further details. Pt tolerating 8/8 alternating PO trials of regular solid crackers as well as 6/6 alternating PO trials of thin liquid apple juice via a straw, all w/o s/s of aspiration or choking. Pt however presenting with minimal to moderate residue on lingua and minimal pocketing, but able to clear oral cavity of residue when alternating btwn solids & liquids. Pt and caregivers/family education completed re: aspiration precautions and safe swallow compensatory strategies pt and caregivers could utilize to aid pt w/swallow function, w/pt indifferent but caregivers/family verbalizing understanding and agreement w/clinician's recommendations. It is thus recommended pt's PO diet consistency be modified to mechanical soft-ground textures w/thin liquids for all meals, w/aspiration precautions in place. No further ST follow up recommended at this time. Pt, caregivers/family and caregiver/Nsg Christen education completed re: results of evaluation; benefits of abiding by recommended PO diet consistency and aspiration precautions; and prognosis for improvement; with pt, caregivers/family and caregiver/nsg Christen verbalizing understanding and agreement w/clinician's recommendations. Pt's family inquiring with clinician re: how to speak with the medical case manager or social work case manager at this time. Clinician informing family that Case Management and SSD are typically gone for the day at this time, but can inform nsg of family's request to speak with them, w/family agreeable. Clinician inquiring as to why family would like to speak with CM or SSD to see if clinician can help family with any concern/question, w/family stating they are concerned for pt's well-being here since MD they spoke with prior to session informed them pt's condition is worsening and not improving, and that family wants to possibly transfer pt to another hospital for a 2nd opinion. Clinician thus informing Nsg Christen and Charge Nurse Walker of pt's family's statements, w/Nsg Christen stating she will attempt to page the oral communication instructor MD to speak w/family. Family agreeable to speaking with on-call MD. Recommend: - PO DIET CONSISTENCY OF MECHANICAL SOFT-GROUND TEXTURES W/THIN LIQUIDS for all meals - WHOLE PILL PO MEDICATION ADMINISTRATION - MAINTAIN STRICT ASPIRATION PRECAUTIONS DURING PT'S PO INTAKE 2/2 TO DX OF PNA - Pt can self-feed with assistance - CUE/REMIND PT PRIOR TO PO INTAKE TO SIT UP AT 80-90 DEGREE ANGLE; EAT/DRINK SLOWLY; ALTERNATE BTWN SOLIDS & LIQUIDS; TAKE SMALL BITES/SIPS - Family may assist pt w/feeding as well No further ST follow up recommended at this time. Time In/Out 18:45 - 19:30
--- NOTE | 2018-09-17 19:50 | NUR ---
FAMILY WANTS TO TALK TO DOCTOR ON DUTY, THEY HAVE CONCERNS REGARDING PT'S CONDITION, DR TINEO MADE AWARE, PT USES BEDSIDE COMMODE WITH MINIMAL ASSIST, VOIDED FREELY, ALL NEEDS ATTENDED.
[2018-09-17 20:00] VITALS: BP 138/67
[2018-09-17] MEDS ORDERED: RIVASTIGMINE 1.5 MG CAP PO SCH (20:00)
--- NOTE | 2018-09-17 20:30 | NUR ---
BLOOD SUGAR CHECKED WITH 322 RESULT, WILL COVER WITH SLIDING SCALE, DUE MEDS ADMINISTERED, DUE EXELON NOT AVAILABLE, DR TINEO MADE AWARE, ALL NEEDS ATTENDED, FAMILY MEMBERS AT BEDSIDE.
--- NOTE | 2018-09-17 23:32 | NUR ---
PT SEEN RESTLESS, SAT-92% ON 10L OXIMIZER, WITH AUDIBLE WHEEZING, REPOSITION ON HIGH FOWLERS POSITION, RT LEONARD GAVE BREATHING TX, SAT-98% AFTER TX, VITAL SIGNS STABLE, PT APPEARS COMFORTABLE, MONITORED CLOSELY.
[2018-09-18] VITALS: BP 134/79
[2018-09-18] MEDS ORDERED: ECOTRIN 81 MG TABEC PO SCH
[2018-09-18] MEDS ORDERED: LEVOFLOXACIN 500 MG/D5W PREMIX 100 ML IV SCH
--- NOTE | 2018-09-18 | NUR ---
PT SLEEPING, EASILY AROUSABLE TO TOUCH, VITAL SIGNS STABLE, SAT-96%, SLIGHTLY TACHYPNEIC BUT NO SOB NOTED, DUE ASPIRIN TAKEN, LEVAQUIN IVPB STARTED ORDERED BY DR ISAAC, MONITOR FOR REACTION, BED ALARM ON FOR SAFETY.
--- NOTE | 2018-09-18 02:40 | NUR ---
PT SLEEPING, NO DISTRESS NOTED, REPORT GIVEN TO MARK HU FOR CONTINUITY OF CARE.
--- NOTE | 2018-09-18 02:42 | NUR ---
Received endorsement from MARK Pennington for continuity of care; patient in stable condition, sleeping, visible chest rise and fall noted. No SOB or distress noted.
[2018-09-18] MEDS: ALBUTEROL SULFATE/IPRATROPIU 3 ML SOL IH PRN (02:59)
--- NOTE | 2018-09-18 03:50 | NUR ---
Patient had an episode of confusion and agitation; used [employer] phone to determine what patient was asking; spoke with Anthony, flight control tower operator number [phone]. Patient wanted to see children; made her aware that it is 4AM in thew morning and that visiting hours were from 8AM to 8PM. Called son and granddaughter Ivonne, left a message. Patient calmed down after talking with flight control tower operator. Was able to take vitals at this time; no distress noted.
[2018-09-18 04:00] VITALS: BP 148/68
[2018-09-18] MEDS: methylPREDNISolone SS 40 MG/ML VIAL IVP SCH ×3 (04:37→20:44)
[2018-09-18] MEDS: PIPER/TAZO 3.375GM/D5W PREMIX 50 ML IV SCH ×3 (04:37→20:43)
--- NOTE | 2018-09-18 04:45 | NUR ---
Due meds given at this time. No distress noted.
[2018-09-18] MEDS: INSULIN LISPRO SLIDING SCALE 100 UNITS/ML VIAL SUBQ PRN ×4 (06:49→21:26)
[2018-09-18] MEDS: BLOOD GLUCOSE MONITORING 1 DEV DEV FS SCH ×4 (06:49→21:01)
[2018-09-18] MEDS: ALBUTEROL SULFATE/IPRATROPIU 3 ML SOL IH SCH ×3 (07:00→20:27)
[2018-09-18 07:07] LABS: CARBON DIOXIDE 31.1 mmol/L (21-32); CHLORIDE 95 mmol/L (98-107); CREATININE 1.2 mg/dL (0.6-1.3); GLUCOSE 260 mg/dL (74-106); POTASSIUM 3.1 mmol/L (3.5-5.1); SODIUM SERUM 137 mmol/L (136-145); UREA NITROGEN, BLOOD 21 mg/dL (7-18)
--- NOTE | 2018-09-18 07:10 | NUR ---
RECEIVED BEDSIDE REPORT FROM JANITOR HEAD NURSE. PT IS AWAKE AND CURRENTLY RECEIVING A BREATHING TX. PT IS NOT IN ANY ACUTE DISTRESS AT THIS TIME. PT IS ON 10L OXIMIZER. CONTINUOUS SPO2 METER IS SHOWING O2 SAT 98%. SKIN IS INTACT. BED IS IN LOW POSITION AND HOB UP 45 DEGREES. FALL PRECAUTIONS ARE IN PLACE. CALL LIGHT IS WITHIN REACH. TWO IV SITES NOTED: R FA 22G, AND L FA 20 G, SALINE LOCKED. WILL CONTINUE TO MONITOR.
[2018-09-18 07:19] LABS: HEMATOCRIT 30.3 % (36-48); HEMOGLOBIN 10.3 g/dL (12.0-16.0); LYMPHOCYTES # (AUTO) 0.6 K/uL (2.5-16.5); MEAN CORPUSCULAR HEMOGLOBIN 31 pg (27-31); MEAN CORPUSCULAR HGB CONC 34 g/dL (33-37); MEAN CORPUSCULAR VOLUME 90.7 fL (80-94); MONOCYTES # (AUTO) 0.7 K/uL (0.8-1.0); MONOCYTES % (AUTO) 7.5 % (1.7-9.3); NEUTROPHILS # (AUTO) 7.9 K/uL (1.8-7.7); NEUTROPHILS % (AUTO) 85.5 % (42.2-75.2); PLATELET COUNT (AUTO) 213 K/uL (140-450); RED BLOOD CELL COUNT(AUTO) 3.34 MIL/uL (4.20-5.40); RED CELL DISTRIBUTION WIDTH 13.5 % (11.6-13.7); WHITE BLOOD COUNT (AUTO) 9.3 K/uL (4.8-10.8)
--- NOTE | 2018-09-18 07:22 | NUR ---
ENDORSED PATIENT TO DAY SHIFT NURSE. PATIENT IS STABLE AT THIS TIME.
[2018-09-18 07:50] VITALS: BP 148/63
[2018-09-18] MEDS: LACTOBACILLUS RHAMNOSUS GG 1 EACH CAP PO SCH (08:20)
[2018-09-18] MEDS: MULTIVITAMIN/MINERALS 1 TAB PO SCH (08:20)
[2018-09-18] MEDS: ATORVASTATIN 20 MG TAB PO SCH (08:21)
[2018-09-18] MEDS: PANTOPRAZOLE 40 MG TABEC PO SCH (08:21)
[2018-09-18] MEDS: DOCUSATE SODIUM 100 MG GELCAP PO SCH ×2 (08:21→20:44)
[2018-09-18] MEDS: CALCIUM CARBONATE 500 MG TAB PO SCH (08:21)
[2018-09-18] MEDS: POTASSIUM CHLORIDE 10 MEQ TABER PO SCH (08:21)
[2018-09-18] MEDS: glipiZIDE 5 MG TAB PO SCH ×2 (08:22→20:44)
[2018-09-18] MEDS: BACLOFEN 10 MG TAB PO SCH (08:22)
[2018-09-18] MEDS: ECOTRIN 81 MG TABEC PO SCH (08:22)
[2018-09-18] MEDS: FUROSEMIDE 40 MG/4 ML VIAL IVP SCH (08:23)
[2018-09-18] MEDS: RIVASTIGMINE 1.5 MG CAP PO SCH (08:24)
[2018-09-18] MEDS: NIFEdipine 90 MG TABER PO SCH ×2 (08:26→20:44)
[2018-09-18] MEDS ORDERED: RIVASTIGMINE 1.5 MG CAP PO SCH (09:00)
--- NOTE | 2018-09-18 09:28 | NUR ---
DR CONWAY AT BEDSIDE TALKING WITH PT'S FAMILY ABOUT PT'S CONDITION STATUS. PT TOOK ALL ORDERED AM MEDICATIONS, TOLERATED WELL.
--- NOTE | 2018-09-18 10:00 | NUR ---
CONSENT OBTAINED FROM PT'S SON FOR PICC LINE INSERTION.
--- NOTE | 2018-09-18 10:24 | NUR ---
decreased fio2 to 8l and josie montoya notified of changes made
--- NOTE | 2018-09-18 11:00 | NUR ---
PT HAVING A RUE PICC LINE PLACED AT THIS TIME.
--- NOTE | 2018-09-18 11:19 | NUR ---
PT HAVING CXR FOR CONFIRMATION OF PICC LINE PLACEMENT.
[2018-09-18 12:00] VITALS: BP 132/57
[2018-09-18] MEDS ORDERED: METOPROLOL 25 MG TAB PO SCH (13:30)
--- NOTE | 2018-09-18 13:33 | NUR ---
CHANGED FIO2 TO VENTI MASK AT 35% AT 9LITERS MARK REYNA NOTIFIED
--- NOTE | 2018-09-18 15:28 | NUR ---
PT APPEARS COMFORTABLE ON THE 9 L O2 VENTURI MASK. NO S/S OF SOB. O2 SAT IS 95-96%.
[2018-09-18 16:00] VITALS: BP 143/67
--- NOTE | 2018-09-18 16:17 | NUR ---
PT IS HAVING CHEST/MEDIASTINUM US AT THIS TIME.
--- NOTE | 2018-09-18 19:15 | NUR ---
PT ENDORSED TO [facility] SH[facility] LEAD NURSE IN STABLE CONDITION.
--- NOTE | 2018-09-18 19:20 | NUR ---
RECEIVED BEDSIDE REPORT FROM DAY SHIFT NURSE. PATIENT IS AWAKE, ALERT, AND COOPERATIVE. FAMILY AT BEDSIDE. RESPIRATION EVEN UNLABORED ON VENTURI MASK 9L. NO DISTRESS NOTED. SKIN IS WARM AND DRY. BARRERA PICC LINE NOTED. ALL SAFETY MEASURE IN PLACE. PLAN OF CARE WAS DISCUSSED. BED IS AT LOW POSITION. BED ALARM ON. CALL LIGHT WITHIN REACH. WILL CONTINUE TO MONITOR.
[2018-09-18 20:00] VITALS: BP 154/83
--- NOTE | 2018-09-18 20:00 | NUR ---
INITIAL ASSESSMENT DONE. VITALS WERE TAKEN. PATIENT CONDITION STABLE. NO DISTRESS NOTED. FAMILY AT BEDSIDE. WILL CONTINUE TO MONITOR.
--- NOTE | 2018-09-18 20:00 | NUR ---
INITIAL ASSESSMENT DONE. VITALS WERE TAKEN. CHECKED G-TUBE RESIDUAL. OBTAINED 0CC. NO DISTRESS NOTED. WILL CONTINUE TO MONITOR. Addendum: 09/18/18 at 2322 by Aracely Ramesh RN WRONG PATIENT
--- NOTE | 2018-09-18 20:42 | NUR ---
RECEIVED PATIENT ON 35% VENTURI MASK, SATURATING 94%. FAMILY AT BEDSIDE. SCHEDULED BREATHING TREATMENT ADMINISTERED. TOLERATED TX WELL; NO ADVERSE SIDE EFFECTS. PLACED PATIENT BACK ON 35% VENTURI MASK POST TX. NO RESPIRATORY DISTRESS NOTED AT THIS TIME. WILL CONTINUE TO MONITOR.
[2018-09-18] MEDS: METOPROLOL 25 MG TAB PO SCH (20:44)
[2018-09-18] MEDS: POTASSIUM CHLORIDE 20% 40 MEQ/15 ML UDC PO SCH (20:45)
[2018-09-18] MEDS: SENNA 8.6 MG TAB PO SCH (20:45)
[2018-09-18] MEDS ORDERED: LEVOFLOXACIN 250 MG/D5 PREMIX 50 ML IV SCH (21:00)
[2018-09-18] MEDS ORDERED: POTASSIUM CHLORIDE 20% 40 MEQ/15 ML UDC GT SCH (21:00)
--- NOTE | 2018-09-18 21:00 | NUR ---
ALL SCHEDULED MEDS WERE GIVEN AND TOLERATED THEM WELL. NO ASE NOTED. WILL CONTINUE TO MONITOR.
--- NOTE | 2018-09-18 22:30 | NUR ---
PATIENT TAKING OFF HER MASK. INSTRUCT HER NOT TO TAKE IT OFF AND EDUCATE HER THE RISK AND BENEFITS. WILL CONTINUE TO MONITOR.
[2018-09-19] VITALS: BP 150/70
[2018-09-19] MEDS ORDERED: LEVOFLOXACIN 250 MG/D5 PREMIX 50 ML IV SCH
--- NOTE | 2018-09-19 | NUR ---
VITALS WERE TAKEN. PATIENT CONDITION STABLE. NO DISTRESS NOTED. WILL CONTINUE TO MONITOR.
--- NOTE | 2018-09-19 00:38 | NUR ---
ENDORSED PATIENT TO NURSE JAP FOR CONTINUITY OF CARE. PATIENT IS STABLE AT THIS TIME.
--- NOTE | 2018-09-19 00:39 | NUR ---
RECEIVED BEDSIDE REPORT FROM MARK AGUILLON FOR CONTINUOUS OF CARE, PT SLEEPING, NO DISTRESS NOTED, CALL LIGHT WITHIN REACH.
--- NOTE | 2018-09-19 01:59 | NUR ---
TITRATED OXYGEN FROM 35% VENTURI MASK TO 2L NASAL CANNULA, 28% FIO2. PATIENT SATURATING 94%. NO SOB NOTED AT THIS TIME. NO PRN BREATHING TX INDICATED AT THIS TIME. PATIENT RESTING COMFORTABLY. NO RESPIRATORY DISTRESS NOTED. WILL CONTINUE TO MONITOR. Addendum: 09/19/18 at 0211 by Cayla Ortega RT RN NOTIFIED OF O2 TITRATION.
--- NOTE | 2018-09-19 02:14 | NUR ---
CHECKED ON PT, PT SLEEPING, NO DISTRESS NOTED, CALL LIGHT WITHIN REACH, WILL CONTINUE TO MONITOR.
--- NOTE | 2018-09-19 03:57 | NUR ---
CHECKED ON PT, V/S TAKEN, PT BP 160/77 HR 90, NOTIFIED DR. RIVKA DR. ORDERED METOPROLOL TO ADMINISTER, WILL CONTINUE WITH ORDER.
[2018-09-19 04:00] VITALS: BP 160/77
[2018-09-19] MEDS: PIPER/TAZO 3.375GM/D5W PREMIX 50 ML IV SCH ×2 (04:51→12:12)
--- NOTE | 2018-09-19 04:53 | NUR ---
DUE MEDICATION ADMINISTERED, PT TOLERATED WELL, NO DISTRESS NOTED, CALL LIGHT WITHIN REACH, WILL CONTINUE TO MONITOR.
[2018-09-19] MEDS ORDERED: METOPROLOL 25 MG TAB PO SCH (05:00)
[2018-09-19] MEDS: BLOOD GLUCOSE MONITORING 1 DEV DEV FS SCH ×2 (05:31→11:38)
[2018-09-19 05:51] LABS: ANION GAP 10.2 (8-16); CARBON DIOXIDE 31.4 mmol/L (21-32); CHLORIDE 101 mmol/L (98-107); CREATININE 0.9 mg/dL (0.6-1.3); GLUCOSE 135 mg/dL (74-106); POTASSIUM 3.6 mmol/L (3.5-5.1); SODIUM SERUM 139 mmol/L (136-145); UREA NITROGEN, BLOOD 16 mg/dL (7-18)
[2018-09-19 05:59] LABS: MAGNESIUM 1.5 mg/dL (1.8-2.4); PHOSPHORUS 2.6 mg/dL (2.5-4.9)
[2018-09-19 06:12] LABS: BASOPHILS % (AUTO) 0.1 % (0.0-2.0); HEMATOCRIT 34.3 % (36-48); HEMOGLOBIN 11.5 g/dL (12.0-16.0); LYMPHOCYTES # (AUTO) 1.3 K/uL (2.5-16.5); LYMPHOCYTES % (AUTO) 13.6 % (20.5-51.1); MEAN CORPUSCULAR HEMOGLOBIN 31 pg (27-31); MEAN CORPUSCULAR HGB CONC 34 g/dL (33-37); MEAN CORPUSCULAR VOLUME 91.7 fL (80-94); MONOCYTES # (AUTO) 0.9 K/uL (0.8-1.0); MONOCYTES % (AUTO) 9.4 % (1.7-9.3); NEUTROPHILS # (AUTO) 7.1 K/uL (1.8-7.7); NEUTROPHILS % (AUTO) 76.9 % (42.2-75.2); PLATELET COUNT (AUTO) 229 K/uL (140-450); RED BLOOD CELL COUNT(AUTO) 3.74 MIL/uL (4.20-5.40); RED CELL DISTRIBUTION WIDTH 13.4 % (11.6-13.7); WHITE BLOOD COUNT (AUTO) 9.3 K/uL (4.8-10.8)
--- NOTE | 2018-09-19 07:10 | NUR ---
ENDORSED PT TO DAY SHIFT NURSE KATIE FLORES, PT STABLE, NO DISTRESS NOTED, CALL LIGHT WITHIN REACH.
--- NOTE | 2018-09-19 07:30 | NUR ---
PATIENT WAS AWAKE, ALERT. RESPIRATION EVEN, UNLABOR ON 2L NC. SKIN DRY AND WARM. IV PATENT AND INTACT. DENIED PAIN, SOB AT THIS TIME. MD WAS AT BEDSIDE. PLAN OF CARE WAS DISCUSSED WITH PATIENT. BED AT LOW POSITION, SIDE RAILS UP. CALL LIGHT WITHIN REACH
[2018-09-19] MEDS: ALBUTEROL SULFATE/IPRATROPIU 3 ML SOL IH SCH ×2 (07:43→13:51)
--- NOTE | 2018-09-19 07:43 | NUR ---
[facility] V60 BIPAP (#[id number]) AT BEDSIDE FOR PRN USE
[2018-09-19 08:00] VITALS: BP 132/64
[2018-09-19] MEDS ORDERED: MAGNESIUM OXIDE 400 MG TAB PO SCH (08:30)
[2018-09-19] MEDS: ATORVASTATIN 20 MG TAB PO SCH (08:38)
[2018-09-19] MEDS: PANTOPRAZOLE 40 MG TABEC PO SCH (08:38)
[2018-09-19] MEDS: LACTOBACILLUS RHAMNOSUS GG 1 EACH CAP PO SCH (08:39)
[2018-09-19] MEDS: MULTIVITAMIN/MINERALS 1 TAB PO SCH (08:39)
[2018-09-19] MEDS: CALCIUM CARBONATE 500 MG TAB PO SCH (08:40)
[2018-09-19] MEDS: BACLOFEN 10 MG TAB PO SCH (08:40)
[2018-09-19] MEDS: glipiZIDE 5 MG TAB PO SCH (08:40)
[2018-09-19] MEDS: ECOTRIN 81 MG TABEC PO SCH (08:40)
[2018-09-19] MEDS: NIFEdipine 90 MG TABER PO SCH (08:42)
[2018-09-19] MEDS: RIVASTIGMINE 1.5 MG CAP PO SCH (08:42)
[2018-09-19] MEDS: POTASSIUM CHLORIDE 20% 40 MEQ/15 ML UDC PO SCH (08:42)
[2018-09-19] MEDS: SENNA 8.6 MG TAB PO SCH (08:44)
[2018-09-19] MEDS: DOCUSATE SODIUM 100 MG GELCAP PO SCH (08:45)
[2018-09-19] MEDS: METOPROLOL 25 MG TAB PO SCH (08:45)
[2018-09-19] MEDS ORDERED: INSULIN LANTUS 100 UNITS/ML 10 ML VIAL SUBQ SCH (09:00)
[2018-09-19] MEDS ORDERED: FUROSEMIDE 40 MG/4 ML VIAL IVP SCH (09:00)
[2018-09-19] MEDS ORDERED: LACTULOSE 20 GM/30 ML UDC PO SCH (09:00)
[2018-09-19] MEDS ORDERED: METOPROLOL SUCCINATE 50 MG TABER PO SCH (09:00)
--- NOTE | 2018-09-19 10:00 | NUR ---
PATIENT WAS AWAKE, ALERT, AMBULATING AROUND HALLWAY WITH PT, STEADY GAIT. NO DISTRESS NOTED AT THIS TIME
--- NOTE | 2018-09-19 11:54 | NUR ---
PATIENT WAS AWAKE, ALERT. RESPIRATION EVEN, UNLABOR ON ROOM AIR. DENIED PAIN, SOB AT THIS TIME. FAMILY AT BEDSIDE. NO DISTRESS NOTED
[2018-09-19 12:00] VITALS: BP 116/58
--- NOTE | 2018-09-19 12:09 | NUR ---
MAR FROM [facility] VISITED PATIENT SPOKE WITH THE FAMILY, EXPLAINED AND ANSWERED ALL THE QUESTIONS AND FAMILY AGREED TO GO TO [facility]. DR CONWAY ALSO DISCUSSED WITH THE FAMILY. PER MAR PT CAN GO TO ROOM 25 THE # TO GIVE REPORT [phone] . ARRANGED TRANSPORT WITH [facility] [place] [phone] PER LOREN TO [facility] FOR TRANSPORTATION. WELL SHOOTER TIME WILL BE AT 2 -3 PM NOTIFIED THE NURSE SOLIS
[2018-09-19] MEDS: INSULIN LISPRO SLIDING SCALE 100 UNITS/ML VIAL SUBQ PRN (12:17)
[2018-09-19] MEDS ORDERED: FURO-572 PO (12:52)
[2018-09-19] MEDS ORDERED: LEVO750T2 IV (12:55)
[2018-09-19] MEDS ORDERED: LEVO500T2 IV (12:55)
[2018-09-19] MEDS ORDERED: ZOS3.375PM IV (12:55)
[2018-09-19] MEDS ORDERED: ASPI-1718 PO (13:22)
--- NOTE | 2018-09-19 13:30 | NUR ---
CALLED AND GAVE REPORT TO HAMIDA PERRY AT [facility]. FAMILY HUNG WAS MADE AWARE. PICC LINE IS PATENT AND INTACT, FLUSHING WELL. WAREHOUSE ATTENDANT WAS REMOVED.
--- NOTE | 2018-09-19 14:10 | NUR ---
DISCHARGE INSTRUCTION WAS GIVEN AND EXPLAINED TO PATIENT AND FAMILY. PATIENT VERBALIZED UNDERSTANDING. REPORT WAS GIVEN TO TRANSPORTER AT BEDSIDE. PATIENT IS AWAKE, ALERT. RESPIRATION EVEN, UNLABOR ON ROOM AIR. NO DISTRESS NOTED AT THIS TIME. FAMILY AT BEDSIDE. PATIENT WAS ESCORTED OUT IN WHEELCHAIR. ALL BELONGINGS WERE TAKEN WITH THE PATIENT. PATIENT IS STABLE AT THIS TIME. PATIENT IS BEING TRANSFERRED TO [facility]
[2018-09-19 18:46] LABS: FERRITIN 177 ng/mL (15 - 150)
== END 2018-09-19 14:10 | DRG 871 ==
LOC: MED 16:43 → MTU 21:03 → MMU 21:53 → MTU 09-17 06:08
PROVIDERS: ADMIT General Practice; ATTEND General Practice
PROC: 02HV33Z Insertion of Infusion Device into Superior Vena Cava, Percutaneous Approach (ICD-10-PCS; principal; 2018-09-18)
DX: A41.9 Sepsis, unspecified organism (principal); J69.0 Pneumonitis due to inhalation of food and vomit; J96.01 Acute respiratory failure with hypoxia; G93.41 Metabolic encephalopathy; I63.9 Cerebral infarction, unspecified; N39.0 Urinary tract infection, site not specified; I31.3 Pericardial effusion (noninflammatory); E87.1 Hypo-osmolality and hyponatremia; D68.59 Other primary thrombophilia; M48.55XA Collapsed vertebra, not elsewhere classified, thoracolumbar region, initial encounter for fracture; R65.20 Severe sepsis without septic shock; K21.9 Gastro-esophageal reflux disease without esophagitis; I11.0 Hypertensive heart disease with heart failure; E87.6 Hypokalemia; E78.5 Hyperlipidemia, unspecified; F03.90 Unspecified dementia, unspecified severity, without behavioral disturbance, psychotic disturbance, mood disturbance, and anxiety; E89.0 Postprocedural hypothyroidism; K80.20 Calculus of gallbladder without cholecystitis without obstruction; E83.42 Hypomagnesemia; K59.00 Constipation, unspecified; E11.65 Type 2 diabetes mellitus with hyperglycemia; E11.69 Type 2 diabetes mellitus with other specified complication; E78.00 Pure hypercholesterolemia, unspecified; J32.3 Chronic sphenoidal sinusitis; Y95 Nosocomial condition; D64.9 Anemia, unspecified; I50.9 Heart failure, unspecified; Z86.73 Personal history of transient ischemic attack (TIA), and cerebral infarction without residual deficits; Z79.84 Long term (current) use of oral hypoglycemic drugs; Z79.899 Other long term (current) drug therapy
CPT/HCPCS: 36415; 36600; 70450; 71045; 71270; 76604; 76705; 80048; 80053; 80305; 81001; 82040; 82150; 82607; 82728; 82803; 82948; 83036; 83540; 83605; 83690; 83735; 83880; 84100; 84439; 84443; 84484; 85025; 85610; 85730; 87040; 87070; 87081; 87086; 87205; 87804; 92526; 93005; 93925; 93970; 94640; 94660; 96365; 96375; 97110; 97116; 97161-GP; 97530; 99291; C1751; J0456; J0696; J1644; J1815; J1940; J1956; J2001; J2060; J2270; J2543; J2920; J2930; J3475; J3480; J7030; J7060; J7620; Q0092; Q9967

== ENCOUNTER 2020-04-11 20:38 | Emergency (ER) | payer OTHER ==
[~2020-04-11] VITALS: Ht 142.2 cm; Wt 55.8 kg
[2020-04-11 20:38] VITALS: BP 138/65
[~2020-04-11 20:38] MED LIST: ASPI-1822 PO; ATOR20TA PO; BACL10TA4 PO; CALC500T19 PO; ESOM40EC PO; FURO-572 PO; GLIP-176 PO; LEVO500T2 IV; LEVO5TAB32 PO; METF1000 PO; MULT1SGL58 PO; NIFE90TE3 PO; ORE25 PO; RIVA3CAP15 PO; ZOS3.375PM IV
--- NOTE | 2020-04-11 20:40 | NUR ---
85 YR OLD FEMALE BROUGHT IN BY AMBULANCE FOR CHIEF COMPLAINT OF SHORTNESS OF BREATH. PATIENT IS AOX4. PATIENT LUNG SOUNDS HAS WHEEZES IN ALL LOBES UPON EXPIRATION. PER EMS, PATIENT O2 SATURATION WAS 86% ON ROOM AIR AND WAS STARTED ON ALBUTEROL TREATMENT ON SCENE. PATIENT IS ON NASAL CANNULA AT 5 L/MIN. PATIENT IS POOR HISTORIAN. LANGUAGE BARRIER WITH PATIENT. PATIENT HAS 20 GUAGE IV IN LEFT AC. PATIENT BED IS LOCKED IN LOWEST POSITION WITH 2 SIDE RAILS UP AND CALL LIGHT WITHIN REACH. WILL CONTINUE TO MONITOR. HISTORY- DM, PNA ALLERGIES- NO KNOWN ALLERGIES.
--- NOTE | 2020-04-11 20:40 | NUR ---
BIBA TO ER BED 7
--- NOTE | 2020-04-11 21:20 | NUR ---
Xray at bedside.
--- NOTE | 2020-04-11 21:25 | NUR ---
Pt currently on 5L NC , oxygen level 87%. ALVINO Oneill made aware of pt status.
--- NOTE | 2020-04-11 21:30 | NUR ---
Blood cultures and labs collected and handed to Vasu Kevin Tech.
--- NOTE | 2020-04-11 21:30 | NUR ---
Nevin molina swab collected and handed to Dorita Vice President [employer].
--- NOTE | 2020-04-11 21:35 | NUR ---
Per Dr. Oneill - placed pt on high flow at this time. RT has been notified.
--- NOTE | 2020-04-11 21:45 | NUR ---
Per Stevenson, RT - no high flow available at this time. He has placed pt on NC w/ humidifer at 8L , current oxygen level 91%.
[2020-04-11 21:46] LABS: BASOPHILS % (AUTO) 0.1 % (0.0-2.0); EOSINOPHILS % (AUTO) 0.4 % (0.0-4.0); HEMATOCRIT 35.6 % (36-48); LYMPHOCYTES # (AUTO) 1.8 K/uL (2.5-16.5); LYMPHOCYTES % (AUTO) 16.3 % (20.5-51.1); MEAN CORPUSCULAR HEMOGLOBIN 30 pg (27-31); MEAN CORPUSCULAR HGB CONC 34 g/dL (33-37); MEAN CORPUSCULAR VOLUME 89.6 fL (80-94); MONOCYTES # (AUTO) 1.1 K/uL (0.8-1.0); MONOCYTES % (AUTO) 9.7 % (1.7-9.3); NEUTROPHILS # (AUTO) 8.2 K/uL (1.8-7.7); NEUTROPHILS % (AUTO) 73.5 % (42.2-75.2); PLATELET COUNT (AUTO) 173 K/uL (140-450); RED BLOOD CELL COUNT(AUTO) 3.97 MIL/uL (4.20-5.40); RED CELL DISTRIBUTION WIDTH 13.6 % (11.6-13.7); WHITE BLOOD COUNT (AUTO) 11.1 K/uL (4.8-10.8)
[2020-04-11 22:14] LABS: ALBUMIN 3.5 g/dL (3.4-5.0); ASPARTATE AMINOTRANSFERASE 48 U/L (15-37); CHLORIDE 87 mmol/L (98-107); CREATININE 1.4 mg/dL (0.6-1.3); GLUCOSE 270 mg/dL (74-106); POTASSIUM 3.3 mmol/L (3.5-5.1); SODIUM SERUM 123 mmol/L (136-145); TOTAL BILIRUBIN 0.6 mg/dL (0.0-1.0); UREA NITROGEN, BLOOD 31 mg/dL (7-18)
[2020-04-11 22:24] LABS: ANION GAP 14.2 (8-16); CARBON DIOXIDE 25.1 mmol/L (21-32)
--- NOTE | 2020-04-11 22:40 | NUR ---
PATIENT FOUND AWAKE IN SEMI-FOWLERS POSITION. PATIENT LUNG SOUNDS HAS WHEEZES IN ALL LOBES UPON EXPIRATION. PATIENT HAS EQUAL RISE AND FALL OF RESPIRATIONS. PATIENT IS ON HUMIDIFIED NASAL CANNULA AT 8 L/MIN. PATIENT SHOWED NO SIGNS OF DISTRESS. PATIENT BED IS LOCKED IN LOWEST POSITION WITH 2 SIDE RAILS UP AND CALL LIGHT WITHIN REACH. WILL CONTINUE TO MONITOR.
[2020-04-11 22:53] LABS: C-REACTIVE PROTEIN QUANT 3.6 mg/dL (0.0-0.9)
[2020-04-11 23:12] LABS: CREATINE KINASE MB 4.3 ng/mL (0-3.6)
[2020-04-11] MEDS ORDERED: ASPIRIN 81 MG TAB.CHEW PO ONE (23:40)
[2020-04-11] MEDS ORDERED: HEPARIN PER PHARMACY MC PRN (23:40)
[2020-04-11] MEDS ORDERED: NACL 0.9% 500 ML IV ONE (23:45)
--- NOTE | 2020-04-12 00:18 | NUR ---
Patient to be transferred to [facility]. Is being transferred due to NEED FOR HIGHER LEVEL OF CARE. Receiving facility has accepting physician and available space. ER physician has signed transfer form. Patient or responsible libertarian has agreed to transfer and signed form. Patient belongings inventoried and will be sent with patient. Copy of nursing notes, lab reports, EKG, Physicians Orders and X-rays to be sent with patient. Report called to BARTOLO FLORES at receiving facility. [facility] ambulance service has been called for transfer. ETA is 10 MIN.
[2020-04-12 00:23] VITALS: BP 118/46
--- NOTE | 2020-04-12 00:25 | NUR ---
PATIENT TRANSFERRED TO [facility] BY [facility].
== END 2020-04-12 00:25 | disposition designated cancer center or children's hospital (05) ==
LOC: MED 20:38
DX: R06.02 Shortness of breath (principal); I11.0 Hypertensive heart disease with heart failure; R77.8 Other specified abnormalities of plasma proteins; E87.1 Hypo-osmolality and hyponatremia; I50.9 Heart failure, unspecified; Z79.899 Other long term (current) drug therapy; Z79.82 Long term (current) use of aspirin; Z20.828 Contact with and (suspected) exposure to other viral communicable diseases
CPT/HCPCS: 36415; 71045; 80053; 82550; 82553; 82728; 83605; 83615; 83880; 84484; 85025; 85384; 86140; 87040; 87426; 93005; 96361; 96374; 99285; J1644; J7030